=== PATIENT | female | born 1975 | race Caucasian/White ===

== ENCOUNTER 2019-06-03 01:20 | Inpatient (IN) ==
[2019-06-03] MEDS ORDERED: ONDANSETRON 4 MG/2 ML VIAL IV STA (01:55)
[2019-06-03] MEDS ORDERED: LACTATED RINGERS 1,000 ML IV STA (01:55)
[2019-06-03] MEDS ORDERED: DIPHTHERIA/TETANUS ADULT VACCINE 0.5 ML SYRINGE IM ONE (01:55)
[2019-06-03 02:06] LABS: Basophils # 0.1 10*3/uL (0.0-0.2); Basophils % 0.3 % (0.0-0.8); Hematocrit 42.1 VOL% (35.7-47.0); Hemoglobin 13.7 GM/DL (12.0-16.0); Immature Granulocytes % 0.5 %; Lymphocytes # 1.7 10*3/uL (1.4-4.0); Lymphocytes % 9.2 % (21.3-54.2); Mean Corpuscular HGB Conc 32.5 GM/DL (32-36); Mean Corpuscular Volume 88.4 FL (87-102); Mean Platelet Volume 11.2 FL (9.6-12.0); Monocytes % 4.8 % (1.7-12.7); Neutrophils % 85.2 % (38.7-73.9); Platelet Count 204 T/CUMM (130-400); Red Blood Count 4.76 MC/CUMM (3.8-5.5); Red Cell Distribution Width 13.5 % (9.3-17.3); White Blood Count 18.4 T/CUMM (4-12)
[2019-06-03 02:12] LABS: INR 0.9; PT Patient Result 10.1 SECS (9.6-12.2); Partial Thromboplastin Time < 21.0 SECS (20.8-36.0)
[2019-06-03 02:23] LABS: Apearance,Urine CLEAR (Clear); Bacteria,Urine Occasional /HPF (Few); Bilirubin,Urine Negative (Negative); Blood, Urine Large mg/dL (Negative); Glucose,Urine (UA) Negative (Negative); Hyaline Casts,Urine 3 /LPF (0-3); Ketones,Urine Negative (Negative); Mucus,Urine Occasional /LPF (Occasional); Nitrite,Urine Negative (Negative); Protein,Urine Negative; RBC,Urine 2 /HPF (0-4); Squamous Epithelial Cell,Urine Occasional /HPF (0-10); Urine Color Straw (Yellow); Urine Specific Gravity 1.009 (1.001-1.035); Urine Urobilinogen < 2.0 EU/DL (0.2-1.0); WBC,Urine 1 /HPF (0-6)
[2019-06-03 02:28] LABS: Alanine Aminotransferase 246 U/L (13-56); Albumin 3.5 G/DL (3.4-5.0); Alkaline Phosphatase 121 U/L (45-117); Amylase 27 U/L (25-115); Aspartate Amino Transferase 300 U/L (0-37); Blood Urea Nitrogen 18 MG/DL (7-18); Calcium 8.4 MG/DL (8.5-10.1); Estimated Glom Filtration Rate 93 ML/MIN; Glucose 127 MG/DL (74-106); Osmolality,Calculated 286.1 MOS/KG (273-304); Total Protein 7.2 G/DL (6.4-8.3)
[2019-06-03 02:32] LABS: Barbiturates Screen,Urine Negative (Negative); Benzodiazepines Screen,Urine Negative (Negative); Cannabinoid Screen,Urine Negative (Negative); Opiate Screen,Urine Negative (Negative); Phencyclidine Screen,Urine Negative (Negative)
[2019-06-03] MEDS ORDERED: PIPERACILLIN/TAZOBACTAM 3,375 MG in SODIUM CHLORIDE 0.9% 100 ML IV STA (03:21)
[2019-06-03] MEDS ORDERED: ONDANSETRON 4 MG/2 ML VIAL IV PRN (03:33)
[2019-06-03] MEDS ORDERED: MORPHINE 4 MG/1 ML VIAL IV PRN ×2 (03:33→08:58)
[2019-06-03] MEDS: DEXTROSE 5% NACL 0.45% 1,000 ML IV SCH (04:49)
[2019-06-03] MEDS ORDERED: INFLUENZA VIRUS VACCINE 0.5 ML SYRINGE IM ONE (05:56)
[2019-06-03 08:08] LABS: Albumin 3.3 G/DL (3.4-5.0); Calcium 8.5 MG/DL (8.5-10.1); Osmolality,Calculated 289.8 MOS/KG (273-304); Total Protein 6.4 G/DL (6.4-8.3)
[2019-06-03 08:09] LABS: Basophils % 0.2 % (0.0-0.8); Hematocrit 36.1 VOL% (35.7-47.0); Hemoglobin 11.5 GM/DL (12.0-16.0); Immature Granulocytes % 0.6 %; Immature Granulocytes Absolute 0.08 #; Lymphocytes # 1.2 10*3/uL (1.4-4.0); Lymphocytes % 9.7 % (21.3-54.2); Mean Corpuscular HGB Conc 31.9 GM/DL (32-36); Mean Corpuscular Volume 91.4 FL (87-102); Mean Platelet Volume 11.2 FL (9.6-12.0); Neutrophils % 83.5 % (38.7-73.9); Platelet Count 250 T/CUMM (130-400); Red Blood Count 3.95 MC/CUMM (3.8-5.5); Red Cell Distribution Width 13.6 % (9.3-17.3); White Blood Count 12.7 T/CUMM (4-12)
[2019-06-03] MEDS ORDERED: MORPHINE 4 MG/1 ML VIAL IM PRN (08:58)
[2019-06-03] MEDS ORDERED: FAMOTIDINE 20 MG/2 ML VIAL IV SCH (09:00)
[2019-06-03] MEDS ORDERED: ALBUTEROL/IPRATROPIUM 3 ML NEB RESP TX PRN (09:00)
[2019-06-03] MEDS ORDERED: LACTATED RINGERS 2,000 ML IV ONE (09:03)
[2019-06-03] MEDS: GABAPENTIN 100 MG CAPSULE PO SCH ×2 (11:02→21:02)
[2019-06-03] MEDS: ALBUTEROL/IPRATROPIUM 3 ML NEB RESP TX SCH ×2 (15:48→20:25)
[2019-06-04] MEDS: ALBUTEROL/IPRATROPIUM 3 ML NEB RESP TX SCH ×6 (01:15→20:55)
[2019-06-04 05:16] LABS: Basophils % 0.3 % (0.0-0.8); Eosinophils % 0.2 % (0.00-10.9); Hematocrit 34.9 VOL% (35.7-47.0); Immature Granulocytes % 0.7 %; Immature Granulocytes Absolute 0.04 #; Lymphocytes # 1.5 10*3/uL (1.4-4.0); Lymphocytes % 24.4 % (21.3-54.2); Mean Corpuscular HGB Conc 31.5 GM/DL (32-36); Mean Corpuscular Volume 90.4 FL (87-102); Mean Platelet Volume 10.9 FL (9.6-12.0); Monocytes % 9.7 % (1.7-12.7); Neutrophils % 64.7 % (38.7-73.9); Platelet Count 203 T/CUMM (130-400); Red Blood Count 3.86 MC/CUMM (3.8-5.5); Red Cell Distribution Width 13.5 % (9.3-17.3); White Blood Count 6.1 T/CUMM (4-12)
[2019-06-04 05:46] LABS: Calcium 8.1 MG/DL (8.5-10.1); Osmolality,Calculated 285.8 MOS/KG (273-304)
[2019-06-04] MEDS: LEVOTHYROXINE 88 MCG TABLET PO SCH (06:22)
[2019-06-04] MEDS: PANTOPRAZOLE 40 MG TABLET PO SCH (09:40)
[2019-06-04] MEDS: GABAPENTIN 100 MG CAPSULE PO SCH ×2 (09:40→20:54)
[2019-06-04] MEDS: DEXTROSE 5% NACL 0.45% 1,000 ML IV SCH ×5 (11:12→20:57)
[2019-06-05] MEDS: DEXTROSE 5% NACL 0.45% 1,000 ML IV SCH ×3 (05:34→20:00)
[2019-06-05] MEDS: LEVOTHYROXINE 88 MCG TABLET PO SCH (06:28)
[2019-06-05] MEDS: ALBUTEROL/IPRATROPIUM 3 ML NEB RESP TX SCH ×3 (08:08→19:54)
[2019-06-05] MEDS: GABAPENTIN 100 MG CAPSULE PO SCH ×2 (09:09→21:24)
[2019-06-05] MEDS: PANTOPRAZOLE 40 MG TABLET PO SCH (09:10)
[2019-06-06] MEDS: ALBUTEROL/IPRATROPIUM 3 ML NEB RESP TX SCH ×4 (00:12→19:19)
[2019-06-06] MEDS: DEXTROSE 5% NACL 0.45% 1,000 ML IV SCH (04:00)
[2019-06-06] MEDS: LEVOTHYROXINE 88 MCG TABLET PO SCH (06:00)
[2019-06-06] MEDS: GABAPENTIN 100 MG CAPSULE PO SCH ×2 (09:24→21:53)
[2019-06-06] MEDS: PANTOPRAZOLE 40 MG TABLET PO SCH (09:25)
[2019-06-06] MEDS: FUROSEMIDE 40 MG TABLET PO SCH (15:53)
[2019-06-07] MEDS: ALBUTEROL/IPRATROPIUM 3 ML NEB RESP TX SCH ×2 (00:17→07:00)
[2019-06-07] MEDS: LEVOTHYROXINE 88 MCG TABLET PO SCH (06:44)
[2019-06-07 07:40] VITALS: BP 146/60
[2019-06-07] MEDS: GABAPENTIN 100 MG CAPSULE PO SCH (08:51)
[2019-06-07] MEDS: PANTOPRAZOLE 40 MG TABLET PO SCH (08:51)
[2019-06-07] MEDS: FUROSEMIDE 40 MG TABLET PO SCH (08:54)
[2019-06-07] MEDS ORDERED: POTASSIUM CHLORIDE 20 MEQ TABLET PO SCH (09:00)
[2019-06-07] MEDS ORDERED: FOLIC ACID 1 MG TABLET PO SCH (09:00)
== END 2019-06-07 11:06 | disposition home or self-care (01) | DRG 200 ==
LOC: EDBD → EDUNIT# → N.ED 01:20 → N.EDINP 03:31 → N.CC 04:02 → N.3E 13:26
PROVIDERS: ADMIT Student in an Organized Health Care Education/Training Program; ATTEND Student in an Organized Health Care Education/Training Program